=== PATIENT | male | born 1975 | race Caucasian/White ===

== ENCOUNTER 2017-09-15 14:41 | Emergency (ER) | payer MEDICARE ==
[2017-09-15] MEDS ORDERED: Ketorolac Tromethamine 30 MG/ML VIAL ONE (14:56)
--- NOTE | 2017-09-15 15:16 | RAD ---
THREE VIEWS LEFT FOOT: Comparison: None. History: Slipped and fell and hit great toe on a column with great toe pain. FINDINGS: Three views of the left foot shows a comminuted fracture of the distal phalanx of the great toe exten ding to the interphalangeal joint of the great toe. There is approximately 40% articular surface invo lvement. Surrounding soft tissue swelling is seen. IMPRESSION: Interarticular fracture of the distal phalanx of the great toe. POS: MATTHEW
== END 2017-09-15 15:26 | disposition home or self-care (01) ==
LOC: SCSER 14:41
DX: S92.422A Displaced fracture of distal phalanx of left great toe, initial encounter for closed fracture (principal); F17.210 Nicotine dependence, cigarettes, uncomplicated; W01.198A Fall on same level from slipping, tripping and stumbling with subsequent striking against other object, initial encounter
CPT/HCPCS: 96372; J1885

== ENCOUNTER 2018-01-14 16:41 | Emergency (ER) | payer MEDICARE | END 2018-01-14 17:49 | disposition left against medical advice (07) | LOC: ERS 16:41 | DX: Z53.21 Procedure and treatment not carried out due to patient leaving prior to being seen by health care provider (principal) ==